=== PATIENT | male | born 1995 | race African-American/Black ===

== ENCOUNTER 2022-05-26 23:15 | Inpatient (IN) ==
[2022-05-26 23:58] LABS: MEAN CORPUSCULAR HEMOGLOBIN 27.7 pg (27.0-34.0); MEAN CORPUSCULAR HGB CONC 34.8 g/dL (33.0-35.0); RED CELL DISTRIBUTION WIDTH 12.1 % (11.6-16.5)
[2022-05-27 00:01] LABS: BASOPHILS # (AUTO) 0.1 X10^3/uL (0.0-0.1); BASOPHILS % (AUTO) 1.3 % (0.2-1.0); EOSINOPHILS # (AUTO) 0.1 x10^3/uL (0.0-0.2); EOSINOPHILS % (AUTO) 1.1 % (0.9-2.9); HEMATOCRIT 36.8 % (42.0-54.0); HEMOGLOBIN 12.8 g/dL (13.5-18.0); LYMPHOCYTES # (AUTO) 1.5 X10^3/uL (1.3-2.9); LYMPHOCYTES % (AUTO) 17.7 % (21.0-51.0); MEAN CORPUSCULAR VOLUME 79.8 fL (80.0-100.0); MEAN PLATELET VOLUME 7.7 fL (7.4-11.0); MONOCYTES # (AUTO) 0.5 x10^3/uL (0.3-0.8); NEUTROPHILS # (AUTO) 6.5 x10^3/uL (2.2-4.8); NEUTROPHILS % (AUTO) 73.9 % (42.0-75.0); RED BLOOD COUNT 4.61 X10^6/uL (4.7-6.0); WHITE BLOOD COUNT 8.7 X10^3/uL (3.6-10.0)
[2022-05-27 00:09] LABS: ALANINE AMINOTRANSFERASE 11 Units/L (12-78); ALBUMIN 2.8 g/dL (3.4-5.0); ALKALINE PHOSPHATASE 42 Units/L (46-116); ASPARTATE AMINO TRANSFERASE 28 Units/L (15-37); BLOOD UREA NITROGEN 15 mg/dL (7-18); CARBON DIOXIDE 29.9 mmol/L (21-32); CHLORIDE 97 mmol/L (98-107); CREATINE KINASE 137 Units/L (39-308); CREATININE 1.09 mg/dL (0.70-1.30); SODIUM 134 mmol/L (136-145); TOTAL PROTEIN 7.7 g/dL (6.4-8.2); eGFR NON BLACK RACES > 60 (>60)
[2022-05-27 00:23] LABS: BILIRUBIN,URINE NEGATIVE (NEGATIVE); BLOOD/HEMOGLOBIN,URINE 3+ (NEGATIVE); GLUCOSE, URINE NEGATIVE (NEGATIVE); KETONES,URINE 1+ (NEGATIVE); LEUKOCYTE ESTERASE ,URINE NEGATIVE (NEGATIVE); NITRITES,URINE NEGATIVE (NEGATIVE); PROTEIN,URINE 1+ (NEGATIVE); UROBILINOGEN,URINE NORMAL (NORMAL)
[2022-05-27 00:38] LABS: APPEARANCE,URINE CLEAR (CLEAR); BACTERIA,URINE NEGATIVE /HPF (NEGATIVE); COLOR,URINE YELLOW (YELLOW); SQUAMOUS EPITHELIAL CELL,UR FEW /HPF (NEGATIVE)
--- NOTE | 2022-05-27 01:02 | DR.SOBA ---
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 Patient admits totaking Delta 8 gummies ( 1 every 3 weeks). Chief Complaint:: Patient ambulatory in the ER with complaints of fatigue, intermittent cough that causes chest pain, shortness of breath, and he feels like his heart is fluttering x2 days. Paitents heart rate was 248 while sitting in triage. O2 is 91% on room air COVID-19 Coronavirus risk:travel/contact w/high risk person: No Has patient experienced Coronavirus symptoms: Yes Coronavirus symptoms experienced: Coughing and Shortness of Breath Source History Provided: Patient Mode of Arrival Mode of Arrival: Ambulatory Timing Onset of Chief Complaint: 05/24/22 PMH PMH Past Medical History: No Past Surgical History: No Family History History of Family Medical Conditions: Yes Family Medical History: Cancer Social History Does patient currently use any type of tobacco product: No Have you used tobacco products in the last 12 months: No Type of Tobacco Use: None Does any household member use tobacco: No Alcohol Use: None Do you use any recreational Drugs:: No Lives With: Alone Lives Where: Home Travel Risk Coronavirus risk:travel/contact w/high risk person: No Has patient experienced Coronavirus symptoms: Yes Coronavirus symptoms experienced: Coughing and Shortness of Breath Infectious screening Have you traveled outside the country in the last 6 months?: No Isolation: Standard ROS Review of Systems Constitutional: No Symptoms Reported Eyes: No Symptoms Reported ENTM: No Symptoms Reported Respiratoy: Dry Cough and Short of Breath; negative Hemoptysis Cardiovascular: Palpitations; negative Syncope Gastrointestinal/Abdominal: No Symptoms Reported Genitourinary: No Symptoms Reported Neurological: No Symptoms Reported Musculoskeletal: No Symptoms Reported; negative Back Pain Integumentary: No Symptoms Reported Hematologic/Lymphatic: No Symptoms Reported Endocrine: No Symptoms Reported Psychiatric: No Symptoms Reported All Other Systems: Reviewed and Negative PE Vital Signs Vitals: Temperature 100.1 F Pulse Rate 90 Respiratory Rate 28 Blood Pressure 124/79 O2 Sat by Pulse Oximetry 93 General Limitations: No Limitations General Appearance: Alert and In No Apparent Distress Head Head Exam: Normal Inspection Eyes Eye exam: Normal Appearance ENT ENT Exam: Normal Exam Neck Neck Exam: Normal Inspection Chest Chest Inspection: Normal Inspection Respiratory Respiratory Exam: Normal Lung Sounds Bilat Respiratory Exam: Bilateral: Decreased Breath Sounds Cardiovascular Cardiovascular Exam: Normal Rhythm and Tachycardia Abdominal Exam Abdominal Exam: Normal Inspection, Normal Bowel Sounds and Soft Extremities Extremities Exam: Normal Inspection Back Back Exam: Normal Inspection Neurologic Neurological Exam: Alert and Oriented X3 Psychiatric Psychiatric Exam: Normal Affect and Normal Mood Skin Skin Exam: Warm, Dry, Intact and Normal Color MDM Differential Diagnosis Differential Diagnosis: Asthma, CHF, Pneumonia, Pneumothorax and Pulmonary embolism COURSE Treatment Treatment: Patient's CXR reda by radiologist as bilateral pneumonia consider Covid-19 Pneumonia. Patient 's D-dimer was elevated and the Chest CTA read as severe bilateral pneumonia ( ARDS and alveolitis in the differentuial). Patient had an initial 02 sat of 88-91 %.He was placed on 2L 02 nc with 02 sat 95-96%. Patient'sABG on RA is PH 7.52/PC02 31/P02 54/02sat 91% (RA). Blood cx x 2 were drawn and patient is receiving Vancomycin 1500mg iv/Azithromycin 500mg iv/Zosyn 3.375 mg iv.Patient's Covid-19/Influenza A/B/Rsv are negative. Patient will be admitted to [facility] for further inpatient evaluation.He also recieved NS 1liter for his tachycardia current HR is 87. Patient has been admitted to Dr Alvarez's service for further evaluation. ROR Labs Reviewed Laboratory Results Reviewed?: Yes Result Diagrams: 05/26/22 23:41 05/26/22 23:41 Laboratory: WBC 8.7 X10^3/uL (3.6-10.0) 05/26/22 23:41 RBC 4.61 X10^6/uL (4.7-6.0) L 05/26/22 23:41 Hgb 12.8 g/dL (13.5-18.0) L 05/26/22 23:41 Hct 36.8 % (42.0-54.0) L 05/26/22 23:41 MCV 79.8 fL (80.0-100.0) L 05/26/22 23:41 MCH 27.7 pg (27.0-34.0) 05/26/22 23:41 MCHC 34.8 g/dL (33.0-35.0) 05/26/22 23: RDW 12.1 % (11.6-16.5) 05/26/22 23:41 Plt Count 344 X10^3/uL (150.0-450.0) 05/26/22 23:41 MPV 7.7 fL (7.4-11.0) 05/26/22 23:41 Neut % (Auto) 73.9 % (42.0-75.0) 05/26/22 23:41 Lymph % (Auto) 17.7 % (21.0-51.0) L 05/26/22 23:41 [place] % (Auto) 6.0 % (0.0-13.0) 05/26/22 23:41 Eos % (Auto) 1.1 % (0.9-2.9) 05/26/22 23:41 Baso % (Auto) 1.3 % (0.2-1.0) H 05/26/22 23:41 Neut # (Auto) 6.5 x10^3/uL (2.2-4.8) H 05/26/22 23:41 Lymph # (Auto) 1.5 X10^3/uL (1.3-2.9) 05/26/22 23:41 [place] # (Auto) 0.5 x10^3/uL (0.3-0.8) 05/26/22 23:41 Eos # (Auto) 0.1 x10^3/uL (0.0-0.2) 05/26/22 23:41 Baso # (Auto) 0.1 X10^3/uL (0.0-0.1) 05/26/22 23:41 Absolute Nucleated RBC 0.0 /100WBC 05/26/22 23:41 D-Dimer 0.58 ug/ml (0.0-0.57) H 05/26/22 23:41 Sample Site Rbra 05/27/22 02:25 ABG pH 7.520 (7.35-7.45) H 05/27/22 02:25 ABG pCO2 31.0 mmHg (35.0-45.0) L 05/27/22 02:25 ABG pO2 54.0 mmHg (80.0-100.0) L 05/27/22 02:25 ABG HCO3 25.3 mmol/L (22-26) 05/27/22 02:25 ABG O2 Saturation 91.0 % (90-100) 05/27/22 02:25 ABG Base Excess 2.9 mmol/L (-2.0-2.0) H 05/27/22 02:25 Lan Test Na 05/27/22 02:25 A-a Gradient 57.0 mmHg 05/27/22 02:25 FiO2 21.0 05/27/22 02:25 Blood Gas Comments [place] abg well-mtf 05/27/22 02:25 Sodium 134 mmol/L (136-145) L 05/26/22 23:41 Corrected Sodium TNP 05/26/22 23:41 Potassium 3.6 mmol/L (3.5-5.1) 05/26/22 23:41 Chloride 97 mmol/L (98-107) L 05/26/22 23:41 Carbon Dioxide 29.9 mmol/L (21-32) 05/26/22 23:41 BUN 15 mg/dL (7-18) 05/26/22 23:41 Creatinine 1.09 mg/dL (0.70-1.30) 05/26/22 23:41 Est GFR (MDRD) Af Amer > 60 (>60) 05/26/22 23:41 Est GFR (MDRD) Non-Af > 60 (>60) 05/26/22 23:41 Glucose 99 mg/dL (65-99) 05/26/22 23:41 Calcium 8.0 mg/dL (8.5-10.1) L 05/26/22 23:41 Corrected Calcium 9.0 mg/dL (8.5-10.1) 05/26/22 23:41 Magnesium 2.0 mg/dL (2.0-2.9) 05/26/22 23:41 Total Bilirubin 0.30 mg/dL (0.2-1.0) 05/26/22 23:41 AST 28 Units/L (15-37) 05/26/22 23:41 ALT 11 Units/L (12-78) L 05/26/22 23:41 Alkaline Phosphatase 42 Units/L (46-116) L 05/26/22 23:41 Creatine Kinase 137 Units/L (39-308) 05/26/22 23:41 Troponin I High Sens < 4.0 ng/L (4.0-60.0) L 05/26/22 23:41 Total Protein 7.7 g/dL (6.4-8.2) 05/26/22 23:41 Albumin 2.8 g/dL (3.4-5.0) L 05/26/22 23:41 Globulin 4.9 g/dL (2.5-4.5) H 05/26/22 23:41 Albumin/Globulin Ratio 0.6 Ratio (1.1-2.1) L 05/26/22 23:41 Specimen Type Clean catch urine 05/27/22 00:15 Urine Color Yellow (YELLOW) 05/27/22 00:15 Urine Appearance Clear (CLEAR) 05/27/22 00:15 Urine pH 5.0 (5.0 - 8.0) 05/27/22 00:15 Ur Specific [place] 1.020 (1.000-1.030) 05/27/22 00:15 Urine Protein 1+ (NEGATIVE) 05/27/22 00:15 Urine Glucose (UA) Negative (NEGATIVE) 05/27/22 00:15 Urine Ketones 1+ (NEGATIVE) 05/27/22 00:15 Urine Blood 3+ (NEGATIVE) 05/27/22 00:15 Urine Nitrite Negative (NEGATIVE) 05/27/22 00:15 Urine Bilirubin Negative (NEGATIVE) 05/27/22 00:15 Urine Urobilinogen Normal (NORMAL) 05/27/22 00:15 Ur Leukocyte Esterase Negative (NEGATIVE) 05/27/22 00:15 Urine RBC 3-5 /HPF (0-3) A 05/27/22 00:15 Urine WBC 0-2 /HPF (0-5) 05/27/22 00:15 Ur Squamous Epith Cells Few /HPF (NEGATIVE) 05/27/22 00:15 Urine Bacteria Negative /HPF (NEGATIVE) 05/27/22 00:15 Ur Culture Indicated? No/not indicated 05/27/22 00:15 Urine Opiates Screen Negative (NEG=<300) 05/27/22 00:15 Urine Methadone Screen Negative (NEG=<300) 05/27/22 00:15 Ur Barbiturates Screen Negative (NEG=<200) 05/27/22 00:15 Ur Phencyclidine Scrn Negative (NEG=<25) 05/27/22 00:15 Ur Amphetamines Screen Negative (NEG=<1000) 05/27/22 00:15 U Benzodiazepines Scrn Negative (NEG=<200) 05/27/22 00:15 Urine Cocaine Screen Negative (NEG=<300) 05/27/22 00:15 U Marijuana (THC) Screen Negative (NEG=<50) 05/27/22 00:15 SARS-CoV-2 (PCR) Negative (NEGATIVE) 05/26/22 23:50 Influenza Type A (PCR) Negative (NEGATIVE) 05/26/22 23:50 Influenza Type B (PCR) Negative (NEGATIVE) 05/26/22 23:50 RSV (PCR) Negative (NEGATIVE) 05/26/22 23:50 XRAY XRAY Interpreted by: Radiologist X-ray Results: HISTORY COUGH, SOB, ELEVATED D DIMER STUDY CTA CHEST COMPARISON None TECHNIQUE Multiple axial images of the chest were obtained from the thoracic inlet to the upper abdomen after the administration of IV contrast. 3D reconstructions utilizing axial MIPS imaging was performed and reviewed. Dose reduction techniques including Automated Exposure Control (AEC) and adjustment of mA and kV were utilized. FINDINGS Satisfactory bolus timing. Limited due to excessive respiratory motion. Negative for pulmonary embolus. The thoracic aorta tapers normally. No pericardial effusion. Limited evaluation of the upper abdomen demonstrates no acute process. Lung windows demonstrate severe bilateral ground-glass airspace opacities consistent with pneumonia. No pneumothorax. IMPRESSION Negative for pulmonary embolus. Severe bilateral pneumonia. ARDS or alveolitis would be differential considerations. Consider possible atypical and viral infectious processes. Covid-19 pneumonia could have a similar appearance. Electronically signed by: Dex Ritchie (May 27, 2022 02:00:50) HISTORY Patient ambulatory in the ER with complaints of fatigue, intermittent cough that causes chest pain, shortness of breath, and he feels like his heart is fluttering x2 days. FEVER NO MEDICAL HX STUDY CHEST, 1 VIEW COMPARISON None FINDINGS Severe bilateral airspace infiltrates worrisome for pneumonia. Midline trachea. Normal heart size. IMPRESSION Bilateral pneumonia. Consider Covid-19 pneumonia. Electronically signed by: Dex Ritchie (May 27, 2022 01:16:23) EKG Compared to prior EKG Dated: 05/26/22 Rate: 115 Rhythm: ST Opioid Opioid Risk Tool Age (Luis Alberto box if 16-45): No History of Preadolescent Sexual Abuse: No Total: 0 Total Score Risk Category: Low Risk Copyright: [facility] predicting aberrant behaviors Discharge Plan Diagnosis Discharge Problem: Community acquired pneumonia, bilateral Discharge Plan Patient Disposition: ADMITTED INPATIENT Condition: Stable Prescriptions: No Action Flintstones Gummies Tablet,Chewable 2 tab PO DAILY Health Concerns: Post Hospitalization: new medications and changes needed to prevent readmission or further decline. Pt educated and given instructions on all concerns. Plan of Treatment: Continue with present treatment and follow up plan. Pt is to keep follow up appointment as instructed and take medications as ordered. Orders to Discharge Patient Discharge Orders: Transfer (Routine); Ordered 05/27/22 Ordered By: Vy Campuzano Follow ups/Referrals Follow ups/Referrals: NFD,None [Primary Care Provider] - 3 days
[2022-05-27] MEDS ORDERED: NS 1,000 ML IV 1,000 ML IV ONE (01:13)
[2022-05-27] MEDS ORDERED: NS 1,000 ML IV 1,000 ML ONE (01:15)
--- NOTE | 2022-05-27 01:21 | RAD ---
HISTORYPatient ambulatory in the ER with complaints of fatigue, intermittent cough that causes chest pain, shortness of breath, and he feels like his heart is fluttering x2 days. FEVER NO MEDICAL HXSTUDYCHEST, 1 VIEWCOMPARISONNoneFINDINGSSevere bilateral airspace infiltrates worrisome for pneumonia. Midline trachea. Normal heart size.IMPRESSIONBilateral pneumonia. Consider Covid-19 pneumonia.Electronically signed by: Dex Ritchie (May 27, 2022 01:16:23)
--- NOTE | 2022-05-27 02:02 | CT ---
HISTORYCOUGH, SOB, ELEVATED D DIMERSTUDYCTA CHESTCOMPARISONNoneTECHNIQUEMultiple axial images of the chest were obtained from the thoracic inlet to the upper abdomen after the administration of IV contrast. 3D reconstructions utilizing axial MIPS imaging was performed and reviewed. Dose reduction techniques including Automated Exposure Control (AEC) and adjustment of mA and kV were utilized.FINDINGSSatisfactory bolus timing. Limited due to excessive respiratory motion.Negative for pulmonary embolus. The thoracic aorta tapers normally. No pericardial effusion. Limited evaluation of the upper abdomen demonstrates no acute process.Lung windows demonstrate severe bilateral ground-glass airspace opacities consistent with pneumonia. No pneumothorax.IMPRESSIONNegative for pulmonary embolus.Severe bilateral pneumonia. ARDS or alveolitis would be differential considerations. Consider possible atypical and viral infectious processes. Covid-19 pneumonia could have a similar appearance.Electronically signed by: Dex Ritchie (May 27, 2022 02:00:50)
[2022-05-27] MEDS ORDERED: VANCOMYCIN IV *PREMIX 1.5 G/300 ML BAG 1.5 G/300 ML PIGGYBACK IV ONE ×2 (02:17→02:40)
[2022-05-27] MEDS ORDERED: ZITHROMAX INJ 500 MG VIAL 500 MG in NS 250 ML IV 250 ML IV SCH (02:18)
[2022-05-27 02:29] LABS: ABG BASE EXCESS 2.9 mmol/L (-2.0-2.0); ABG HCO3 25.3 mmol/L (22-26)
[2022-05-27] MEDS ORDERED: ZITHROMAX INJ 500 MG VIAL IV ONE (02:39)
[2022-05-27] MEDS ORDERED: NS 100 ML IV 100 ML ONE (02:39)
[2022-05-27] MEDS ORDERED: ZOSYN VIAL 3.375 GRAMS IV ONE (02:39)
[2022-05-27] MEDS ORDERED: NS 250 ML IV 250 ML IV ONE (02:40)
[2022-05-27] MEDS: ZOSYN VIAL 3.375 GRAMS 3.375 G in NS 100 ML IV 100 ML IV SCH ×4 (03:00→21:23)
[2022-05-27 03:57] VITALS: BMI 19.8
[2022-05-27] MEDS ORDERED: SALINE 3% 15 ML NEB TX ONE ×2 (04:02→20:01)
[2022-05-27] MEDS ORDERED: TYLENOL 325 MG TAB PO ONE (04:24)
--- NOTE | 2022-05-27 04:26 | EKG ---
Test Reason : sob,tachycardia Blood Pressure : */* mmHG Vent. Rate : 84 BPM Atrial Rate : 84 BPM P-R Int : 180 ms QRS Dur : 82 ms QT Int : 376 ms P-R-T Axes : 72 79 55 degrees QTc Int : 444 ms Normal sinus rhythm Normal ECG When compared with ECG of 26-MAY-2022 23:40, (Unconfirmed) No significant change was found Confirmed by Beau Jamison ([id number]) on 05/27/2022 7:30:15 PM Referred By: Confirmed By: Beau Jamison
[2022-05-27 05:19] LABS: BASOPHILS % (AUTO) 0.5 % (0.2-1.0); EOSINOPHILS # (AUTO) 0.1 x10^3/uL (0.0-0.2); HEMATOCRIT 32.7 % (42.0-54.0); HEMOGLOBIN 11.4 g/dL (13.5-18.0); LYMPHOCYTES # (AUTO) 1.1 X10^3/uL (1.3-2.9); LYMPHOCYTES % (AUTO) 15.1 % (21.0-51.0); MEAN CORPUSCULAR HEMOGLOBIN 27.7 pg (27.0-34.0); MEAN CORPUSCULAR HGB CONC 34.8 g/dL (33.0-35.0); MEAN CORPUSCULAR VOLUME 79.5 fL (80.0-100.0); MEAN PLATELET VOLUME 7.9 fL (7.4-11.0); MONOCYTES # (AUTO) 0.5 x10^3/uL (0.3-0.8); MONOCYTES % (AUTO) 7.2 % (0.0-13.0); NEUTROPHILS # (AUTO) 5.6 x10^3/uL (2.2-4.8); NEUTROPHILS % (AUTO) 76.2 % (42.0-75.0); RED BLOOD COUNT 4.12 X10^6/uL (4.7-6.0); WHITE BLOOD COUNT 7.4 X10^3/uL (3.6-10.0)
[2022-05-27] MEDS: NS 1,000 ML IV 1,000 ML IV SCH ×2 (05:35→16:44)
[2022-05-27 05:37] LABS: ALANINE AMINOTRANSFERASE 9 Units/L (12-78); ALBUMIN 2.4 g/dL (3.4-5.0); ALKALINE PHOSPHATASE 38 Units/L (46-116); ASPARTATE AMINO TRANSFERASE 24 Units/L (15-37); BLOOD UREA NITROGEN 12 mg/dL (7-18); CALCIUM 7.7 mg/dL (8.5-10.1); CARBON DIOXIDE 28.4 mmol/L (21-32); CHLORIDE 98 mmol/L (98-107); CREATININE 1.06 mg/dL (0.70-1.30); SODIUM 134 mmol/L (136-145); TOTAL PROTEIN 6.8 g/dL (6.4-8.2); eGFR NON BLACK RACES > 60 (>60)
[2022-05-27] MEDS: TYLENOL 325 MG TAB PO PRN ×2 (05:37→21:23)
[2022-05-27] MEDS ORDERED: POTASSIUM CHL 40 MEQ/NS 0.45% 500 ML IV PRN (07:13)
[2022-05-27] MEDS ORDERED: K-DUR TAB 20 MEQ PO PRN (07:13)
[2022-05-27] MEDS ORDERED: POTASSIUM CHL 60 MEQ/NS 0.45% 500 ML IV PRN (07:13)
[2022-05-27] MEDS ORDERED: KLOR-CON PO PRN (07:13)
[2022-05-27] MEDS ORDERED: K-RIDER 10 MEQ/NS 100 ML 10 MEQ/100 ML BAG IV PRN (07:13)
[2022-05-27] MEDS ORDERED: MICRO K EXTEN CAP 10 MEQ PO PRN (07:13)
[2022-05-27] MEDS ORDERED: POTASSIUM CHLORIDE LIQ 20 MEQ UDC PO PRN (07:13)
[2022-05-27] MEDS: DUONEB 0.5 MG/3 MG (3 mL) NEB SCH ×5 (08:30→20:47)
[2022-05-27] MEDS: PULMICORT NEB TX 0.5 MG NEB SCH ×2 (08:30→20:47)
[2022-05-27] MEDS ORDERED: MULTIVITAMIN PO SCH (09:00)
[2022-05-27] MEDS ORDERED: [UNRECOGNIZED DRUG - OTHER] PO SCH (09:00)
--- NOTE | 2022-05-27 17:51 | DR.H&P ---
H&P History & Physical for Day of: H&P Date: 05/27/22 Chief Complaint Chief Complaint: Cough with intermittent chest pain shortness of breath and heart fluttering Allergies Allergies Allergy/AdvReac Type Severity Reaction Status Date / Time No Known Allergies Allergy Verified 05/26/22 23:47 History of Present Illness History of Present Illness: This is a pleasant 26-year-old black male who presented to the emergency department last night with increasing coughing for the last 2 days associated with pleuritic chest pain with cough, heart fluttering and generally not feeling well. His chest x-ray showed what looked like to be atypical viral pneumonia much like he see with COVID-19 infection however his COVID-19 test is negative at this time. 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 Currently he works in sanitation at a local company and they do clean floors but only use mild chemicals at this time that does not appear to be too strong. His D-dimer was a lso slightly elevated and they did a CT scan that ruled out a PE. The CT scan did show severe groundglass opacities throughout both lungs however I do not know if this is a chronic or acute condition for him. They were not able to get a sputum last night however they did a viral respiratory panel. In the meantime we have started him on IV azithromycin and Zosyn. Blood cultures x2 have been drawn and are pending. Patient was noted to have some low fever in the emergency department last night. When he came in his heart rate was around 248 in triage but that has normalized with the IV fluid he has received and jet nebs. Patient reports he is previously healthy and not on any medications. Family History Family Medical History: Cancer Social History Does patient currently use any type of tobacco product: No (non smoker) Have you used tobacco products in the last 12 months: No Type of Tobacco Use: None Does any household member use tobacco: No Alcohol Use: None Drug Use: Marijuana Medications Home Medications: No Known Allergies Allergy (Verified 05/26/22 23:47) CONTINUE taking the following medications pediatric multivitamin no.49 (Flintstones Gummies chewable tablet) 2 tab PO DAILY 05/26/22 [History] Labs Result Diagrams: 05/27/22 04:14 05/27/22 04:14 Labs: Laboratory WBC 7.4 X10^3/uL (3.6-10.0) 05/27/22 04:14 RBC 4.12 X10^6/uL (4.7-6.0) L 05/27/22 04:14 Hgb 11.4 g/dL (13.5-18.0) L 05/27/22 04:14 Hct 32.7 % (42.0-54.0) L 05/27/22 04:14 MCV 79.5 fL (80.0-100.0) L 05/27/22 04:14 MCH 27.7 pg (27.0-34.0) 05/27/22 04:14 MCHC 34.8 g/dL (33.0-35.0) 05/27/22 04:14 RDW 12.0 % (11.6-16.5) 05/27/22 04:14 Plt Count 317 X10^3/uL (150.0-450.0) 05/27/22 04:14 MPV 7.9 fL (7.4-11.0) 05/27/22 04:14 Neut % (Auto) 76.2 % (42.0-75.0) H 05/27/22 04:14 Lymph % (Auto) 15.1 % (21.0-51.0) L 05/27/22 04:14 [place] % (Auto) 7.2 % (0.0-13.0) 05/27/22 04:14 Eos % (Auto) 1.0 % (0.9-2.9) 05/27/22 04:14 Baso % (Auto) 0.5 % (0.2-1.0) 05/27/22 04:14 Neut # (Auto) 5.6 x10^3/uL (2.2-4.8) H 05/27/22 04:14 Lymph # (Auto) 1.1 X10^3/uL (1.3-2.9) L 05/27/22 04:14 [place] # (Auto) 0.5 x10^3/uL (0.3-0.8) 05/27/22 04:14 Eos # (Auto) 0.1 x10^3/uL (0.0-0.2) 05/27/22 04:14 Baso # (Auto) 0.0 X10^3/uL (0.0-0.1) 05/27/22 04:14 Absolute Nucleated RBC 0.0 /100WBC 05/27/22 04:14 D-Dimer 0.58 ug/ml (0.0-0.57) H 05/26/22 23:41 Sample Site Rbra 05/27/22 02:25 ABG pH 7.520 (7.35-7.45) H 05/27/22 02:25 ABG pCO2 31.0 mmHg (35.0-45.0) L 05/27/22 02:25 ABG pO2 54.0 mmHg (80.0-100.0) L 05/27/22 02:25 ABG HCO3 25.3 mmol/L (22-26) 05/27/22 02:25 ABG O2 Saturation 91.0 % (90-100) 05/27/22 02:25 ABG Base Excess 2.9 mmol/L (-2.0-2.0) H 05/27/22 02:25 Lan Test Na 05/27/22 02:25 A-a Gradient 57.0 mmHg 05/27/22 02:25 FiO2 21.0 05/27/22 02:25 Blood Gas Comments [place] abg well-mtf 05/27/22 02:25 Sodium 134 mmol/L (136-145) L 05/27/22 04:14 Corrected Sodium TNP 05/27/22 04:14 Potassium 3.5 mmol/L (3.5-5.1) 05/27/22 04:14 Chloride 98 mmol/L (98-107) 05/27/22 04:14 Carbon Dioxide 28.4 mmol/L (21-32) 05/27/22 04:14 BUN 12 mg/dL (7-18) 05/27/22 04:14 Creatinine 1.06 mg/dL (0.70-1.30) 05/27/22 04:14 Est GFR (MDRD) Af Amer > 60 (>60) 05/27/22 04:14 Est GFR (MDRD) Non-Af > 60 (>60) 05/27/22 04:14 Glucose 81 mg/dL (65-99) 05/27/22 04:14 Calcium 7.7 mg/dL (8.5-10.1) L 05/27/22 04:14 Corrected Calcium 9.0 mg/dL (8.5-10.1) 05/27/22 04:14 Magnesium 2.0 mg/dL (2.0-2.9) 05/26/22 23:41 Total Bilirubin 0.40 mg/dL (0.2-1.0) 05/27/22 04:14 AST 24 Units/L (15-37) 05/27/22 04:14 ALT 9 Units/L (12-78) L 05/27/22 04:14 Alkaline Phosphatase 38 Units/L (46-116) L 05/27/22 04:14 Creatine Kinase 137 Units/L (39-308) 05/26/22 23:41 Troponin I High Sens < 4.0 ng/L (4.0-60.0) L 05/26/22 23:41 Total Protein 6.8 g/dL (6.4-8.2) 05/27/22 04:14 Albumin 2.4 g/dL (3.4-5.0) L 05/27/22 04:14 Globulin 4.4 g/dL (2.5-4.5) 05/27/22 04:14 Albumin/Globulin Ratio 0.5 Ratio (1.1-2.1) L 05/27/22 04:14 Specimen Type Clean catch urine 05/27/22 00:15 Urine Color Yellow (YELLOW) 05/27/22 00:15 Urine Appearance Clear (CLEAR) 05/27/22 00:15 Urine pH 5.0 (5.0 - 8.0) 05/27/22 00:15 Ur Specific [place] 1.020 (1.000-1.030) 05/27/22 00:15 Urine Protein 1+ (NEGATIVE) 05/27/22 00:15 Urine Glucose (UA) Negative (NEGATIVE) 05/27/22 00:15 Urine Ketones 1+ (NEGATIVE) 05/27/22 00:15 Urine Blood 3+ (NEGATIVE) 05/27/22 00:15 Urine Nitrite Negative (NEGATIVE) 05/27/22 00:15 Urine Bilirubin Negative (NEGATIVE) 05/27/22 00:15 Urine Urobilinogen Normal (NORMAL) 05/27/22 00:15 Ur Leukocyte Esterase Negative (NEGATIVE) 05/27/22 00:15 Urine RBC 3-5 /HPF (0-3) A 05/27/22 00:15 Urine WBC 0-2 /HPF (0-5) 05/27/22 00:15 Ur Squamous Epith Cells Few /HPF (NEGATIVE) 05/27/22 00:15 Urine Bacteria Negative /HPF (NEGATIVE) 05/27/22 00:15 Ur Culture Indicated? No/not indicated 05/27/22 00:15 Urine Opiates Screen Negative (NEG=<300) 05/27/22 00:15 Urine Methadone Screen Negative (NEG=<300) 05/27/22 00:15 Ur Barbiturates Screen Negative (NEG=<200) 05/27/22 00:15 Ur Phencyclidine Scrn Negative (NEG=<25) 05/27/22 00:15 Ur Amphetamines Screen Negative (NEG=<1000) 05/27/22 00:15 U Benzodiazepines Scrn Negative (NEG=<200) 05/27/22 00:15 Urine Cocaine Screen Negative (NEG=<300) 05/27/22 00:15 U Marijuana (THC) Screen Negative (NEG=<50) 05/27/22 00:15 SARS-CoV-2 (PCR) Negative (NEGATIVE) 05/26/22 23:50 Influenza Type A (PCR) Negative (NEGATIVE) 05/26/22 23:50 Influenza Type B (PCR) Negative (NEGATIVE) 05/26/22 23:50 RSV (PCR) Negative (NEGATIVE) 05/26/22 23:50 Review of Systems Constitutional: Fever and Weakness Eyes: No Symptoms Reported ENT: No Symptoms Reported Respiratory: Cough, Shortness of Breath and Pleuritic Pain Cardiovascular: Chest Pain and Palpitations Gastrointestinal: No Symptoms Reported Genitourinary: No Symptoms Reported Musculoskeletal: No Symptoms Reported Skin: No Symptoms Reported Neurological: No Symptoms Reported Physical Exam Vital Signs: Temperature 97.8 F Pulse Rate 88 Respiratory Rate 23 Blood Pressure [Left Arm] 110/73 Blood Pressure 117/76 O2 Sat by Pulse Oximetry 95 Oriented: Normal, Time, Person and Place Eyes: Normal Nose: Normal Respiratory: Clear Throughout Cardiovascular: Normal Auscultation: Bowel Sounds: Normal Palpation: Normal Tenderness: Normal Skin: Normal Musculoskeletal: Normal Psychiatric: Normal Mood Description: Calm Affect: Normal Speech Pattern: Clear and Appropriate Assessment/Plan (1) Community acquired pneumonia, bilateral: Status: Acute (2) Atypical pneumonia: Status: Acute Plan: Check mycoplasma antibodies to see if patient has underlying mycoplasma pneumonia. Follow-up with respiratory viral cultures when available. We will try to do a sputum culture as well. Continue IV azithromycin and Zosyn at this time. We will also be giving him DuoNebs along with budesonide nebs twice daily.
[2022-05-27 18:59] LABS: MYCOPLASMA PNEUMONIAE IGM AB NEGATIVE (NEGATIVE)
[2022-05-28] MEDS: TYLENOL 325 MG TAB PO PRN ×2 (04:40→13:25)
[2022-05-28] MEDS ORDERED: ROBITUSSIN DM PO PRN (04:53)
[2022-05-28 05:12] LABS: BASOPHILS # (AUTO) 0.1 X10^3/uL (0.0-0.1); BASOPHILS % (AUTO) 0.7 % (0.2-1.0); EOSINOPHILS # (AUTO) 0.2 x10^3/uL (0.0-0.2); EOSINOPHILS % (AUTO) 1.9 % (0.9-2.9); HEMATOCRIT 36.2 % (42.0-54.0); HEMOGLOBIN 12.7 g/dL (13.5-18.0); LYMPHOCYTES # (AUTO) 1.5 X10^3/uL (1.3-2.9); LYMPHOCYTES % (AUTO) 15.3 % (21.0-51.0); MEAN PLATELET VOLUME 7.5 fL (7.4-11.0); MONOCYTES # (AUTO) 0.6 x10^3/uL (0.3-0.8); MONOCYTES % (AUTO) 5.9 % (0.0-13.0); NEUTROPHILS # (AUTO) 7.6 x10^3/uL (2.2-4.8); NEUTROPHILS % (AUTO) 76.2 % (42.0-75.0); RED BLOOD COUNT 4.52 X10^6/uL (4.7-6.0); RED CELL DISTRIBUTION WIDTH 12.3 % (11.6-16.5); WHITE BLOOD COUNT 9.9 X10^3/uL (3.6-10.0)
[2022-05-28] MEDS: ZOSYN VIAL 3.375 GRAMS 3.375 G in NS 100 ML IV 100 ML IV SCH ×2 (05:16→13:24)
[2022-05-28] MEDS: NS 1,000 ML IV 1,000 ML IV SCH (05:16)
[2022-05-28 05:26] LABS: ALANINE AMINOTRANSFERASE 9 Units/L (12-78); ALBUMIN 2.5 g/dL (3.4-5.0); ALKALINE PHOSPHATASE 39 Units/L (46-116); ASPARTATE AMINO TRANSFERASE 28 Units/L (15-37); BLOOD UREA NITROGEN 6 mg/dL (7-18); CALCIUM 8.3 mg/dL (8.5-10.1); CARBON DIOXIDE 29.3 mmol/L (21-32); CHLORIDE 100 mmol/L (98-107); COR CA(FOR HYPOALB) 9.5 mg/dL (8.5-10.1); CREATININE 0.91 mg/dL (0.70-1.30); SODIUM 138 mmol/L (136-145); TOTAL PROTEIN 7.4 g/dL (6.4-8.2); eGFR NON BLACK RACES > 60 (>60)
[2022-05-28 05:55] LABS: ABG BASE EXCESS 4.7 mmol/L (-2.0-2.0); ABG HCO3 28.2 mmol/L (22-26)
[2022-05-28 05:56] LABS: ABG ALLEN TEST POS
--- NOTE | 2022-05-28 07:09 | RAD ---
HISTORYBIL PNEUMONIA, SOBSTUDYCHEST, 1 VIEWCOMPARISONCTA chest from 05/27/2022. Chest radiograph from 05/26/2022.TECHNIQUEPA or AP view of the chestFINDINGSCardiac and mediastinal contours are within normal limits. Worse appearance of bilateral airspace and interstitial opacities compared to prior radiograph. No definite pleural effusion or pneumothorax.IMPRESSIONWorse bilateral pneumonia compared to prior radiograph. Recommend follow up imaging to document resolution after appropriate treatment.Electronically signed by: Abhi Blanco (May 28, 2022 07:08:33)
[2022-05-28] MEDS: PULMICORT NEB TX 0.5 MG NEB SCH ×2 (08:23→20:03)
[2022-05-28] MEDS: DUONEB 0.5 MG/3 MG (3 mL) NEB SCH ×5 (08:23→20:03)
[2022-05-28] MEDS ORDERED: VIBRAMYCIN 100 MG in D5W 250 ML IV 250 ML IV SCH (09:00)
[2022-05-28] MEDS ORDERED: ZITHROMAX INJ 500 MG VIAL 500 MG in NS 250 ML IV 250 ML IV SCH (09:00)
--- NOTE | 2022-05-28 13:52 | PCM.PROG ---
Progress Note Progress Note for Day of Date of Exam: 05/28/22 Subjective Subjective: Patient is about the same this morning. He does report feeling a little bit better though. He had no problems overnight but I did see that he had some fever around 5:00 this morning of 101 F. He feels like the phlegm in his chest is starting to break loose as he is starting to cough, but this time. He has no new complaints this morning. Viral respiratory panel is still pending at this time. His labs look good overall today. Past Medical Family Social History Allergies: Allergies No Known Allergies Allergy (Verified 05/26/22 23:47) Review of Systems ROS: No change since H&P Vital Signs and I&O's Vital Signs: Temperature 102.3 F Pulse Rate 110 Respiratory Rate 22 Blood Pressure [Left Arm] 110/73 Blood Pressure 118/70 O2 Sat by Pulse Oximetry 94 Intake and Output: Intake & Output 05/26/22 05/27/22 05/28/22 05/29/22 11:59 11:59 11:59 11:59 Intake Total 308 / 308 2733 / 2733 Output Total 2750 / 2750 Balance 308 / 308 -17 / -17 Physical Exam Oriented: Normal, Time, Person and Place Eyes: Normal Nose: Normal Respiratory: Generalized and Rhonchi Cardiovascular: Normal Auscultation: Bowel Sounds: Normal Tenderness: Normal Skin: Normal Musculoskeletal: Normal Psychiatric: Normal Mood Description: Calm Affect: Normal Speech Pattern: Clear and Appropriate Laboratory and Diagnostics Result Diagrams: 05/28/22 04:40 05/28/22 04:40 Labs: Laboratory WBC 9.9 X10^3/uL (3.6-10.0) 05/28/22 04:40 RBC 4.52 X10^6/uL (4.7-6.0) L 05/28/22 04:40 Hgb 12.7 g/dL (13.5-18.0) L 05/28/22 04:40 Hct 36.2 % (42.0-54.0) L 05/28/22 04:40 MCV 80.0 fL (80.0-100.0) 05/28/22 04:40 MCH 28.0 pg (27.0-34.0) 05/28/22 04:40 MCHC 35.0 g/dL (33.0-35.0) 05/28/22 04:40 RDW 12.3 % (11.6-16.5) 05/28/22 04:40 Plt Count 312 X10^3/uL (150.0-450.0) 05/28/22 04:40 MPV 7.5 fL (7.4-11.0) 05/28/22 04:40 Neut % (Auto) 76.2 % (42.0-75.0) H 05/28/22 04:40 Lymph % (Auto) 15.3 % (21.0-51.0) L 05/28/22 04:40 [place] % (Auto) 5.9 % (0.0-13.0) 05/28/22 04:40 Eos % (Auto) 1.9 % (0.9-2.9) 05/28/22 04:40 Baso % (Auto) 0.7 % (0.2-1.0) 05/28/22 04:40 Neut # (Auto) 7.6 x10^3/uL (2.2-4.8) H 05/28/22 04:40 Lymph # (Auto) 1.5 X10^3/uL (1.3-2.9) 05/28/22 04:40 [place] # (Auto) 0.6 x10^3/uL (0.3-0.8) 05/28/22 04:40 Eos # (Auto) 0.2 x10^3/uL (0.0-0.2) 05/28/22 04:40 Baso # (Auto) 0.1 X10^3/uL (0.0-0.1) 05/28/22 04:40 Absolute Nucleated RBC 0.0 /100WBC 05/28/22 04:40 D-Dimer 0.58 ug/ml (0.0-0.57) H 05/26/22 23:41 Sample Site Rr 05/28/22 05:00 ABG pH 7.490 (7.35-7.45) H 05/28/22 05:00 ABG pCO2 37.0 mmHg (35.0-45.0) 05/28/22 05:00 ABG pO2 101.0 mmHg (80.0-100.0) H 05/28/22 05:00 ABG HCO3 28.2 mmol/L (22-26) H 05/28/22 05:00 ABG O2 Saturation 98.0 % (90-100) 05/28/22 05:00 ABG Base Excess 4.7 mmol/L (-2.0-2.0) H 05/28/22 05:00 Lan Test Pos 05/28/22 05:00 A-a Gradient 81.0 mmHg 05/28/22 05:00 FiO2 32.0 05/28/22 05:00 Blood Gas Comments [place] well sw 05/28/22 05:00 Sodium 138 mmol/L (136-145) 05/28/22 04:40 Corrected Sodium TNP 05/28/22 04:40 Potassium 3.5 mmol/L (3.5-5.1) 05/28/22 04:40 Chloride 100 mmol/L (98-107) 05/28/22 04:40 Carbon Dioxide 29.3 mmol/L (21-32) 05/28/22 04:40 BUN 6 mg/dL (7-18) L 05/28/22 04:40 Creatinine 0.91 mg/dL (0.70-1.30) 05/28/22 04:40 Est GFR (MDRD) Af Amer > 60 (>60) 05/28/22 04:40 Est GFR (MDRD) Non-Af > 60 (>60) 05/28/22 04:40 Glucose 79 mg/dL (65-99) 05/28/22 04:40 Calcium 8.3 mg/dL (8.5-10.1) L 05/28/22 04:40 Corrected Calcium 9.5 mg/dL (8.5-10.1) 05/28/22 04:40 Magnesium 2.0 mg/dL (2.0-2.9) 05/26/22 23:41 Total Bilirubin 0.40 mg/dL (0.2-1.0) 05/28/22 04:40 AST 28 Units/L (15-37) 05/28/22 04:40 ALT 9 Units/L (12-78) L 05/28/22 04:40 Alkaline Phosphatase 39 Units/L (46-116) L 05/28/22 04:40 Creatine Kinase 137 Units/L (39-308) 05/26/22 23:41 Troponin I High Sens < 4.0 ng/L (4.0-60.0) L 05/26/22 23:41 Total Protein 7.4 g/dL (6.4-8.2) 05/28/22 04:40 Albumin 2.5 g/dL (3.4-5.0) L 05/28/22 04:40 Globulin 4.9 g/dL (2.5-4.5) H 05/28/22 04:40 Albumin/Globulin Ratio 0.5 Ratio (1.1-2.1) L 05/28/22 04:40 Specimen Type Clean catch urine 05/27/22 00:15 Urine Color Yellow (YELLOW) 05/27/22 00:15 Urine Appearance Clear (CLEAR) 05/27/22 00:15 Urine pH 5.0 (5.0 - 8.0) 05/27/22 00:15 Ur Specific [place] 1.020 (1.000-1.030) 05/27/22 00:15 Urine Protein 1+ (NEGATIVE) 05/27/22 00:15 Urine Glucose (UA) Negative (NEGATIVE) 05/27/22 00:15 Urine Ketones 1+ (NEGATIVE) 05/27/22 00:15 Urine Blood 3+ (NEGATIVE) 05/27/22 00:15 Urine Nitrite Negative (NEGATIVE) 05/27/22 00:15 Urine Bilirubin Negative (NEGATIVE) 05/27/22 00:15 Urine Urobilinogen Normal (NORMAL) 05/27/22 00:15 Ur Leukocyte Esterase Negative (NEGATIVE) 05/27/22 00:15 Urine RBC 3-5 /HPF (0-3) A 05/27/22 00:15 Urine WBC 0-2 /HPF (0-5) 05/27/22 00:15 Ur Squamous Epith Cells Few /HPF (NEGATIVE) 05/27/22 00:15 Urine Bacteria Negative /HPF (NEGATIVE) 05/27/22 00:15 Ur Culture Indicated? No/not indicated 05/27/22 00:15 Urine Opiates Screen Negative (NEG=<300) 05/27/22 00:15 Urine Methadone Screen Negative (NEG=<300) 05/27/22 00:15 Ur Barbiturates Screen Negative (NEG=<200) 05/27/22 00:15 Ur Phencyclidine Scrn Negative (NEG=<25) 05/27/22 00:15 Ur Amphetamines Screen Negative (NEG=<1000) 05/27/22 00:15 U Benzodiazepines Scrn Negative (NEG=<200) 05/27/22 00:15 Urine Cocaine Screen Negative (NEG=<300) 05/27/22 00:15 U Marijuana (THC) Screen Negative (NEG=<50) 05/27/22 00:15 SARS-CoV-2 (PCR) Negative (NEGATIVE) 05/26/22 23:50 Influenza Type A (PCR) Negative (NEGATIVE) 05/26/22 23:50 Influenza Type B (PCR) Negative (NEGATIVE) 05/26/22 23:50 Mycoplasma pneumon IgG Negative (NEGATIVE) 05/27/22 18:03 RSV (PCR) Negative (NEGATIVE) 05/26/22 23:50 Resp Viral Panel (PCR) See scanned report 05/27/22 04:07 Radiology Reviewed: Yes Plan (1) Community acquired pneumonia, bilateral: Status: Acute Narrative Support Text: Chest x-ray showed some worsening since yesterday's chest x-ray was done. Likely was secondary to the IV fluid he received. Also the Mycoplasma pneumoniae a antibody test was negative. Plan: I am stopping the azithromycin this morning and starting him on IV Vibramycin. (2) Atypical pneumonia: Status: Acute Plan: Follow-up with respiratory viral cultures when available. We will try to do a sputum culture as well.
[2022-05-28] MEDS ORDERED: PULMICORT NEB TX 0.5 MG NEB ONE (19:09)
[2022-05-28] MEDS: LEVAQUIN PREMIX IV 750 MG 750 MG/150 ML BAG IV SCH (19:30)
[2022-05-29] MEDS: TYLENOL 325 MG TAB PO PRN ×2 (01:19→10:11)
[2022-05-29] MEDS: NS 1,000 ML IV 1,000 ML IV SCH ×3 (01:45→20:42)
[2022-05-29] MEDS: PULMICORT NEB TX 0.5 MG NEB SCH ×2 (08:27→21:11)
[2022-05-29] MEDS: DUONEB 0.5 MG/3 MG (3 mL) NEB SCH ×4 (08:28→21:14)
[2022-05-29] MEDS: LEVAQUIN PREMIX IV 750 MG 750 MG/150 ML BAG IV SCH (08:56)
[2022-05-29 10:09] LABS: BASOPHILS % (AUTO) 0.4 % (0.2-1.0); EOSINOPHILS # (AUTO) 0.2 x10^3/uL (0.0-0.2); EOSINOPHILS % (AUTO) 1.5 % (0.9-2.9); HEMATOCRIT 36.3 % (42.0-54.0); HEMOGLOBIN 12.4 g/dL (13.5-18.0); LYMPHOCYTES # (AUTO) 2.1 X10^3/uL (1.3-2.9); LYMPHOCYTES % (AUTO) 19.2 % (21.0-51.0); MEAN CORPUSCULAR HEMOGLOBIN 27.6 pg (27.0-34.0); MEAN CORPUSCULAR HGB CONC 34.1 g/dL (33.0-35.0); MEAN CORPUSCULAR VOLUME 80.8 fL (80.0-100.0); MEAN PLATELET VOLUME 7.1 fL (7.4-11.0); MONOCYTES # (AUTO) 0.6 x10^3/uL (0.3-0.8); MONOCYTES % (AUTO) 5.6 % (0.0-13.0); NEUTROPHILS # (AUTO) 8.1 x10^3/uL (2.2-4.8); NEUTROPHILS % (AUTO) 73.3 % (42.0-75.0); RED BLOOD COUNT 4.49 X10^6/uL (4.7-6.0); RED CELL DISTRIBUTION WIDTH 12.4 % (11.6-16.5); WHITE BLOOD COUNT 11.1 X10^3/uL (3.6-10.0)
[2022-05-29 10:34] LABS: ALANINE AMINOTRANSFERASE 9 Units/L (12-78); ALBUMIN 2.3 g/dL (3.4-5.0); ALKALINE PHOSPHATASE 38 Units/L (46-116); ASPARTATE AMINO TRANSFERASE 32 Units/L (15-37); BLOOD UREA NITROGEN 5 mg/dL (7-18); CALCIUM 8.2 mg/dL (8.5-10.1); CARBON DIOXIDE 28.1 mmol/L (21-32); CHLORIDE 101 mmol/L (98-107); COR CA(FOR HYPOALB) 9.6 mg/dL (8.5-10.1); CREATININE 1.01 mg/dL (0.70-1.30); SODIUM 139 mmol/L (136-145); TOTAL PROTEIN 7.3 g/dL (6.4-8.2); eGFR NON BLACK RACES > 60 (>60)
--- NOTE | 2022-05-29 11:03 | EKG ---
Test Reason : Chest pain, shortness of breath Blood Pressure : */* mmHG Vent. Rate : 122 BPM Atrial Rate : 122 BPM P-R Int : 166 ms QRS Dur : 80 ms QT Int : 282 ms P-R-T Axes : 66 68 43 degrees QTc Int : 401 ms Sinus tachycardia Possible Left atrial enlargement Nonspecific T wave abnormality Abnormal ECG When compared with ECG of 27-MAY-2022 04:18, Nonspecific T wave abnormality now evident in Lateral leads Confirmed by Beau Jamison ([id number]) on 05/31/2022 8:32:26 AM Referred By: Confirmed By: Beau Jamison
--- NOTE | 2022-05-29 11:15 | RAD ---
HISTORYPneumoniaSTUDYAP chestCOMPARISONApril 2022FINDINGSThere is interval progression of diffuse bilateral airspace involvement in the lungs especially on the right. Heart size remains normal with no evidence for developing pleural effusion.IMPRESSIONPersistent bilateral pneumonia with slight interval progression.Electronically signed by: JORDAN CHAMBERS (May 29, 2022 11:14:13)
[2022-05-29] MEDS: TORADOL 30 MG VIAL IVP PRN (11:36)
[2022-05-30] MEDS: TYLENOL 325 MG TAB PO PRN ×2 (00:13→17:02)
[2022-05-30 05:07] LABS: BASOPHILS # (AUTO) 0.1 X10^3/uL (0.0-0.1); BASOPHILS % (AUTO) 0.7 % (0.2-1.0); EOSINOPHILS # (AUTO) 0.3 x10^3/uL (0.0-0.2); HEMATOCRIT 32.3 % (42.0-54.0); HEMOGLOBIN 11.2 g/dL (13.5-18.0); LYMPHOCYTES # (AUTO) 0.8 X10^3/uL (1.3-2.9); MEAN CORPUSCULAR HEMOGLOBIN 27.5 pg (27.0-34.0); MEAN CORPUSCULAR HGB CONC 34.7 g/dL (33.0-35.0); MEAN CORPUSCULAR VOLUME 79.3 fL (80.0-100.0); MEAN PLATELET VOLUME 7.6 fL (7.4-11.0); MONOCYTES # (AUTO) 0.5 x10^3/uL (0.3-0.8); MONOCYTES % (AUTO) 6.5 % (0.0-13.0); NEUTROPHILS # (AUTO) 6.5 x10^3/uL (2.2-4.8); NEUTROPHILS % (AUTO) 78.8 % (42.0-75.0); RED BLOOD COUNT 4.08 X10^6/uL (4.7-6.0); RED CELL DISTRIBUTION WIDTH 12.5 % (11.6-16.5); WHITE BLOOD COUNT 8.3 X10^3/uL (3.6-10.0)
[2022-05-30 05:18] LABS: ALANINE AMINOTRANSFERASE 9 Units/L (12-78); ALKALINE PHOSPHATASE 35 Units/L (46-116); ASPARTATE AMINO TRANSFERASE 26 Units/L (15-37); BLOOD UREA NITROGEN 7 mg/dL (7-18); CHLORIDE 102 mmol/L (98-107); COR CA(FOR HYPOALB) 9.6 mg/dL (8.5-10.1); SODIUM 137 mmol/L (136-145); TOTAL PROTEIN 6.8 g/dL (6.4-8.2); eGFR NON BLACK RACES > 60 (>60)
[2022-05-30] MEDS: DUONEB 0.5 MG/3 MG (3 mL) NEB SCH ×4 (08:05→20:55)
[2022-05-30] MEDS: PULMICORT NEB TX 0.5 MG NEB SCH ×2 (08:05→20:55)
[2022-05-30] MEDS: NS 1,000 ML IV 1,000 ML IV SCH ×2 (09:11→23:19)
[2022-05-30] MEDS: LEVAQUIN PREMIX IV 750 MG 750 MG/150 ML BAG IV SCH (09:12)
--- NOTE | 2022-05-30 09:43 | RAD ---
HISTORYAtypical pneumonia COVID-19STUDYAP chestCOMPARISONApril 2022FINDINGSPersistent diffuse bilateral pulmonary infiltrates with no improvement or progression. Heart size remains normal.IMPRESSIONNo change since 1 day prior.Electronically signed by: JORDAN CHAMBERS (May 30, 2022 09:42:21)
--- NOTE | 2022-05-30 11:42 | PCM.PROG ---
Progress Note - Progress Note for Day of Date of Exam: 05/29/22 - Subjective Subjective: IS A 26 YEAR OLD PATIENT OF . HE IS CURRENTLY INPATIENT STATUS FOR TREATMENT OF COMMUNITY AQUIRED PNEUMONIA/ATYPICAL PNEUMONIA. HE DENIES A PAST MEDICAL HISTORY AND IS NOT CURRENTLY ON ANY HOME MEDICATIONS. TODAY, HE IS ALERT AND ORIENTED, LYING IN BED ON MORNING ROUNDS. HE IS ABLE TO ANSWER QUESTIONS AND FOLLOW COMMAND APPROPRIATELY. HE COMPLAINS OF COUGH AND OCCASIONAL SHORTNESS OF BREATH THIS MORNING. COUGH IS NOT PRODUCTIVE AT THIS TIME. ON EXAMINATION, HEART IS REGULAR IN RATE AND RHYTHM. BILATERAL LUNGS NOTED WITH RHONCHI THROUGHOUT. ABDOMEN IS FLAT, SOFT, AND NON-TENDER WITH NORMAL BOWEL SOUNDS NOTED IN ALL QUADRANTS. GOOD MOVEMENT NOTED TO ALL EXTREMITIES WITH NO EDEMA NOTED. HIS VITALS THIS MORNING ARE: 103.1-100-29-93%-118/74. HE IS CURRENTLY ON OXYGEN VIA NASAL CANNULA AT 3 LPM. LABS WERE OBTAINED. WBC 11.1, RBC 4.49, HGB 12.4, HCT 36.3, PLT COUNT 327, SODIUM 139, POTASSIUM 3.6, CHLORIDE 101, BUN 5, CREATININE 1.01, GLUCOSE 89, CALCIUM 8.2, AST 32, ALT 9, ALK PHOS 38, TOTAL PROTEIN 7.3, ALBUMIN 2.3. RESPIRATORY AIT PANEL WAS POSITIVE FOR RHINOVIRUS, HAEMOPHILUS INFLUENZAE, AND STREPTOCOCCUS PNEUMONIAE. BLOOD CULTURES ARE PENDING. HIV PENDING. MYCOPLASMA PNEUMONIA IS NEGATIVE. A CHEST XRAY WAS OBTAINED THIS MORNING AND REVEALED: Persistent bilateral pneumonia with slight interval progression. HE IS CURRENTLY RECEIVING NORMAL SALINE AT 80 ML/HR, LEVAQUIN 750MG IV DAILY, PULMICORT NEBS BID, DUONEBS QID, ROBITUSSIN DM Q4H PRN, TORADOL 30MG IV Q6H, AND THE POTASSIUM PROTOCOL. WE WILL CONTINUE WITH CURRENT PLAN OF CARE TODAY. OTHERWISE, WE WILL FOLLOW-UP WITH AM LABS AND CONTINUE TO MONITOR. TIME SPENT ON CLINICAL ASSESSMENT, REVIWING LABS AND IMAGING, DECISION MAKING, AND DOCUMENTATION GREATER THAN 45 MINUTES. - Past Medical Family Social History Past Med/Fam/Surg Hx: No changes since H&P Allergies: Allergies No Known Allergies Allergy (Verified 05/26/22 23:47) - Review of Systems ROS: No change since H&P - Vital Signs and I&O's Vital Signs: Temperature 98.9 F Pulse Rate 81 Respiratory Rate 23 Blood Pressure [Left Arm] 110/73 Blood Pressure 118/79 O2 Sat by Pulse Oximetry 100 Intake and Output: Intake & Output 05/27/22 05/28/22 05/29/22 05/30/22 11:59 11:59 11:59 11:59 Intake Total 308 / 308 2733 / 2733 4956 / 4956 2279 / 2279 Output Total 2750 / 2750 3725 / 3725 1000 / 1000 Balance 308 / 308 -17 / -17 1231 / 1231 1279 / 1279 - Physical Exam Oriented: Normal, Time, Person, Place Eyes: Normal Ear: Normal Nose: Normal Respiratory: Generalized, Rhonchi Cardiovascular: Normal Auscultation: Bowel Sounds: Normal Palpation: Normal Tenderness: Normal Skin: Normal Musculoskeletal: Normal Psychiatric: Normal Mood Description: Calm Affect: Normal Speech Pattern: Clear, Appropriate - Laboratory and Diagnostics Result Diagrams: 05/30/22 04:20 05/30/22 04:20 Labs: 05/27/22 02:50 Blood Blood Culture - Preliminary 05/27/22 02:46 Blood Blood Culture - Preliminary Laboratory WBC 8.3 X10^3/uL (3.6-10.0) 05/30/22 04:20 RBC 4.08 X10^6/uL (4.7-6.0) L 05/30/22 04:20 Hgb 11.2 g/dL (13.5-18.0) L 05/30/22 04:20 Hct 32.3 % (42.0-54.0) L 05/30/22 04:20 MCV 79.3 fL (80.0-100.0) L 05/30/22 04:20 MCH 27.5 pg (27.0-34.0) 05/30/22 04:20 MCHC 34.7 g/dL (33.0-35.0) 05/30/22 04:20 RDW 12.5 % (11.6-16.5) 05/30/22 04:20 Plt Count 287 X10^3/uL (150.0-450.0) 05/30/22 04:20 MPV 7.6 fL (7.4-11.0) 05/30/22 04:20 Neut % (Auto) 78.8 % (42.0-75.0) H 05/30/22 04:20 Lymph % (Auto) 10.0 % (21.0-51.0) L 05/30/22 04:20 [place] % (Auto) 6.5 % (0.0-13.0) 05/30/22 04:20 Eos % (Auto) 4.0 % (0.9-2.9) H 05/30/22 04:20 Baso % (Auto) 0.7 % (0.2-1.0) 05/30/22 04:20 Neut # (Auto) 6.5 x10^3/uL (2.2-4.8) H 05/30/22 04:20 Lymph # (Auto) 0.8 X10^3/uL (1.3-2.9) L 05/30/22 04:20 [place] # (Auto) 0.5 x10^3/uL (0.3-0.8) 05/30/22 04:20 Eos # (Auto) 0.3 x10^3/uL (0.0-0.2) H 05/30/22 04:20 Baso # (Auto) 0.1 X10^3/uL (0.0-0.1) 05/30/22 04:20 Absolute Nucleated RBC 0.0 /100WBC 05/30/22 04:20 D-Dimer 0.58 ug/ml (0.0-0.57) H 05/26/22 23:41 Sample Site Rr 05/28/22 05:00 ABG pH 7.490 (7.35-7.45) H 05/28/22 05:00 ABG pCO2 37.0 mmHg (35.0-45.0) 05/28/22 05:00 ABG pO2 101.0 mmHg (80.0-100.0) H 05/28/22 05:00 ABG HCO3 28.2 mmol/L (22-26) H 05/28/22 05:00 ABG O2 Saturation 98.0 % (90-100) 05/28/22 05:00 ABG Base Excess 4.7 mmol/L (-2.0-2.0) H 05/28/22 05:00 Lan Test Pos 05/28/22 05:00 A-a Gradient 81.0 mmHg 05/28/22 05:00 FiO2 32.0 05/28/22 05:00 Blood Gas Comments [place] well sw 05/28/22 05:00 Sodium 137 mmol/L (136-145) 05/30/22 04:20 Corrected Sodium TNP 05/30/22 04:20 Potassium 4.0 mmol/L (3.5-5.1) 05/30/22 04:20 Chloride 102 mmol/L (98-107) 05/30/22 04:20 Carbon Dioxide 30.0 mmol/L (21-32) 05/30/22 04:20 BUN 7 mg/dL (7-18) 05/30/22 04:20 Creatinine 0.80 mg/dL (0.70-1.30) 05/30/22 04:20 Est GFR (MDRD) Af Amer > 60 (>60) 05/30/22 04:20 Est GFR (MDRD) Non-Af > 60 (>60) 05/30/22 04:20 Glucose 84 mg/dL (65-99) 05/30/22 04:20 Calcium 8.0 mg/dL (8.5-10.1) L 05/30/22 04:20 Corrected Calcium 9.6 mg/dL (8.5-10.1) 05/30/22 04:20 Magnesium 2.0 mg/dL (2.0-2.9) 05/26/22 23:41 Total Bilirubin 0.30 mg/dL (0.2-1.0) 05/30/22 04:20 AST 26 Units/L (15-37) 05/30/22 04:20 ALT 9 Units/L (12-78) L 05/30/22 04:20 Alkaline Phosphatase 35 Units/L (46-116) L 05/30/22 04:20 Creatine Kinase 156 Units/L (39-308) 05/29/22 10:00 Troponin I High Sens 4.4 ng/L (4.0-60.0) 05/29/22 10:00 Total Protein 6.8 g/dL (6.4-8.2) 05/30/22 04:20 Albumin 2.0 g/dL (3.4-5.0) L 05/30/22 04:20 Globulin 4.8 g/dL (2.5-4.5) H 05/30/22 04:20 Albumin/Globulin Ratio 0.4 Ratio (1.1-2.1) L 05/30/22 04:20 Specimen Type Clean catch urine 05/27/22 00:15 Urine Color Yellow (YELLOW) 05/27/22 00:15 Urine Appearance Clear (CLEAR) 05/27/22 00:15 Urine pH 5.0 (5.0 - 8.0) 05/27/22 00:15 Ur Specific [place] 1.020 (1.000-1.030) 05/27/22 00:15 Urine Protein 1+ (NEGATIVE) 05/27/22 00:15 Urine Glucose (UA) Negative (NEGATIVE) 05/27/22 00:15 Urine Ketones 1+ (NEGATIVE) 05/27/22 00:15 Urine Blood 3+ (NEGATIVE) 05/27/22 00:15 Urine Nitrite Negative (NEGATIVE) 05/27/22 00:15 Urine Bilirubin Negative (NEGATIVE) 05/27/22 00:15 Urine Urobilinogen Normal (NORMAL) 05/27/22 00:15 Ur Leukocyte Esterase Negative (NEGATIVE) 05/27/22 00:15 Urine RBC 3-5 /HPF (0-3) A 05/27/22 00:15 Urine WBC 0-2 /HPF (0-5) 05/27/22 00:15 Ur Squamous Epith Cells Few /HPF (NEGATIVE) 05/27/22 00:15 Urine Bacteria Negative /HPF (NEGATIVE) 05/27/22 00:15 Ur Culture Indicated? No/not indicated 05/27/22 00:15 Urine Opiates Screen Negative (NEG=<300) 05/27/22 00:15 Urine Methadone Screen Negative (NEG=<300) 05/27/22 00:15 Ur Barbiturates Screen Negative (NEG=<200) 05/27/22 00:15 Ur Phencyclidine Scrn Negative (NEG=<25) 05/27/22 00:15 Ur Amphetamines Screen Negative (NEG=<1000) 05/27/22 00:15 U Benzodiazepines Scrn Negative (NEG=<200) 05/27/22 00:15 Urine Cocaine Screen Negative (NEG=<300) 05/27/22 00:15 U Marijuana (THC) Screen Negative (NEG=<50) 05/27/22 00:15 SARS-CoV-2 (PCR) Negative (NEGATIVE) 05/26/22 23:50 Influenza Type A (PCR) Negative (NEGATIVE) 05/26/22 23:50 Influenza Type B (PCR) Negative (NEGATIVE) 05/26/22 23:50 Mycoplasma pneumon IgG Negative (NEGATIVE) 05/27/22 18:03 RSV (PCR) Negative (NEGATIVE) 05/26/22 23:50 Resp Viral Panel (PCR) See scanned report 05/27/22 04:07 - Plan (1) Community acquired pneumonia, bilateral Status: Acute Plan: CONTINUE IV ANTIBIOTICS, NEBULIZER TREATMENTS, ROBITUSSIN. CULTURES PEN DING (2) Atypical pneumonia Status: Acute
--- NOTE | 2022-05-30 12:20 | PCM.PROG ---
Progress Note - Progress Note for Day of Date of Exam: 05/30/22 - Subjective Subjective: IS A 26 YEAR OLD PATIENT OF . HE IS CURRENTLY INPATIENT STATUS FOR TREATMENT OF COMMUNITY AQUIRED PNEUMONIA/ATYPICAL PNEUMONIA. HE DENIES A PAST MEDICAL HISTORY AND IS NOT CURRENTLY ON ANY HOME MEDICATIONS. TODAY, HE IS ALERT AND ORIENTED, LYING IN BED ON MORNING ROUNDS. HE IS ABLE TO ANSWER QUESTIONS AND FOLLOW COMMAND APPROPRIATELY. HE COMPLAINS OF COUGH AND OCCASIONAL SHORTNESS OF BREATH THIS MORNING. COUGH IS NOT PRODUCTIVE AT THIS TIME. ON EXAMINATION, HEART IS REGULAR IN RATE AND RHYTHM. BILATERAL LUNGS NOTED WITH RHONCHI THROUGHOUT. ABDOMEN IS FLAT, SOFT, AND NON-TENDER WITH NORMAL BOWEL SOUNDS NOTED IN ALL QUADRANTS. GOOD MOVEMENT NOTED TO ALL EXTREMITIES WITH NO EDEMA NOTED. HIS VITALS THIS MORNING ARE: 98.9-97-23-99%-118/79. HE IS CURRENTLY ON OXYGEN VIA NASAL CANNULA AT 3 LPM. LABS WERE OBTAINED. WBC 8.3, RBC 4.08, HGB 11.2, HCT 32.3, SODIUM 137, POTASSIUM 4.0, CHLORIDE 102, BUN 7, CREATININE 0.80, GLUCOSE 84, CALCIUM 8.0, AST 26, ALT 9, ALK PHOS 35, TOTAL PROTEIN 6.8, ALBUMIN 2.0. RESPIRATORY AIT PANEL WAS POSITIVE FOR RHINOVIRUS, HAEMOPHILUS INFLUENZAE, AND STREPTOCOCCUS PNEUMONIAE. BLOOD CULTURES ARE PENDING. HIV PENDING. MYCOPLASMA PNEUMONIA IS NEGATIVE. A CHEST XRAY WAS OBTAINED THIS MORNING AND REVEALED: Persistent diffuse bilateral pulmonary infiltrates with no improvement or progression. Heart size remains normal. HE IS CURRENTLY RECEIVING NORMAL SALINE AT 80 ML/HR, LEVAQUIN 750MG IV DAILY, PULMICORT NEBS BID, DUONEBS QID, ROBITUSSIN DM Q4H PRN, TORADOL 30MG IV Q6H, AND THE POTASSIUM PROTOCOL. WE WILL CONTINUE WITH CURRENT PLAN OF CARE TODAY. OTHERWISE, WE WILL FOLLOW-UP WITH AM LABS AND CONTINUE TO MONITOR. TIME SPENT ON CLINICAL ASSESSMENT, REVIWING LABS AND IMAGING, DECISION MAKING, AND DOCUMENTATION GREATER THAN 45 MINUTES. - Past Medical Family Social History Past Med/Fam/Surg Hx: No changes since H&P Allergies: Allergies No Known Allergies Allergy (Verified 05/26/22 23:47) - Review of Systems ROS: No change since H&P - Vital Signs and I&O's Vital Signs: Temperature 98.9 F Pulse Rate 81 Respiratory Rate 23 Blood Pressure [Left Arm] 110/73 Blood Pressure 118/79 O2 Sat by Pulse Oximetry 100 Intake and Output: Intake & Output 05/28/22 05/29/22 05/30/22 05/31/22 11:59 11:59 11:59 11:59 Intake Total 2733 / 2733 4956 / 4956 2279 / 2279 Output Total 2750 / 2750 3725 / 3725 1000 / 1000 Balance - 1231 / 1231 1279 / 1279 - Physical Exam Oriented: Normal, Time, Person, Place Eyes: Normal Ear: Normal Nose: Normal Respiratory: Generalized, Rhonchi Cardiovascular: Normal Auscultation: Bowel Sounds: Normal Tenderness: Normal Skin: Normal Musculoskeletal: Normal Psychiatric: Normal Mood Description: Calm Affect: Normal Speech Pattern: Clear, Appropriate - Laboratory and Diagnostics Result Diagrams: 05/30/22 04:20 05/30/22 04:20 Labs: 05/27/22 02:50 Blood Blood Culture - Preliminary 05/27/22 02:46 Blood Blood Culture - Preliminary Laboratory WBC 8.3 X10^3/uL (3.6-10.0) 05/30/22 04:20 RBC 4.08 X10^6/uL (4.7-6.0) L 05/30/22 04:20 Hgb 11.2 g/dL (13.5-18.0) L 05/30/22 04:20 Hct 32.3 % (42.0-54.0) L 05/30/22 04:20 MCV 79.3 fL (80.0-100.0) L 05/30/22 04:20 MCH 27.5 pg (27.0-34.0) 05/30/22 04:20 MCHC 34.7 g/dL (33.0-35.0) 05/30/22 04:20 RDW 12.5 % (11.6-16.5) 05/30/22 04:20 Plt Count 287 X10^3/uL (150.0-450.0) 05/30/22 04:20 MPV 7.6 fL (7.4-11.0) 05/30/22 04:20 Neut % (Auto) 78.8 % (42.0-75.0) H 05/30/22 04:20 Lymph % (Auto) 10.0 % (21.0-51.0) L 05/30/22 04:20 [place] % (Auto) 6.5 % (0.0-13.0) 05/30/22 04:20 Eos % (Auto) 4.0 % (0.9-2.9) H 05/30/22 04:20 Baso % (Auto) 0.7 % (0.2-1.0) 05/30/22 04:20 Neut # (Auto) 6.5 x10^3/uL (2.2-4.8) H 05/30/22 04:20 Lymph # (Auto) 0.8 X10^3/uL (1.3-2.9) L 05/30/22 04:20 [place] # (Auto) 0.5 x10^3/uL (0.3-0.8) 05/30/22 04:20 Eos # (Auto) 0.3 x10^3/uL (0.0-0.2) H 05/30/22 04:20 Baso # (Auto) 0.1 X10^3/uL (0.0-0.1) 05/30/22 04:20 Absolute Nucleated RBC 0.0 /100WBC 05/30/22 04:20 D-Dimer 0.58 ug/ml (0.0-0.57) H 05/26/22 23:41 Sample Site Rr 05/28/22 05:00 ABG pH 7.490 (7.35-7.45) H 05/28/22 05:00 ABG pCO2 37.0 mmHg (35.0-45.0) 05/28/22 05:00 ABG pO2 101.0 mmHg (80.0-100.0) H 05/28/22 05:00 ABG HCO3 28.2 mmol/L (22-26) H 05/28/22 05:00 ABG O2 Saturation 98.0 % (90-100) 05/28/22 05:00 ABG Base Excess 4.7 mmol/L (-2.0-2.0) H 05/28/22 05:00 Lan Test Pos 05/28/22 05:00 A-a Gradient 81.0 mmHg 05/28/22 05:00 FiO2 32.0 05/28/22 05:00 Blood Gas Comments [place] well sw 05/28/22 05:00 Sodium 137 mmol/L (136-145) 05/30/22 04:20 Corrected Sodium TNP 05/30/22 04:20 Potassium 4.0 mmol/L (3.5-5.1) 05/30/22 04:20 Chloride 102 mmol/L (98-107) 05/30/22 04:20 Carbon Dioxide 30.0 mmol/L (21-32) 05/30/22 04:20 BUN 7 mg/dL (7-18) 05/30/22 04:20 Creatinine 0.80 mg/dL (0.70-1.30) 05/30/22 04:20 Est GFR (MDRD) Af Amer > 60 (>60) 05/30/22 04:20 Est GFR (MDRD) Non-Af > 60 (>60) 05/30/22 04:20 Glucose 84 mg/dL (65-99) 05/30/22 04:20 Calcium 8.0 mg/dL (8.5-10.1) L 05/30/22 04:20 Corrected Calcium 9.6 mg/dL (8.5-10.1) 05/30/22 04:20 Magnesium 2.0 mg/dL (2.0-2.9) 05/26/22 23:41 Total Bilirubin 0.30 mg/dL (0.2-1.0) 05/30/22 04:20 AST 26 Units/L (15-37) 05/30/22 04:20 ALT 9 Units/L (12-78) L 05/30/22 04:20 Alkaline Phosphatase 35 Units/L (46-116) L 05/30/22 04:20 Creatine Kinase 156 Units/L (39-308) 05/29/22 10:00 Troponin I High Sens 4.4 ng/L (4.0-60.0) 05/29/22 10:00 Total Protein 6.8 g/dL (6.4-8.2) 05/30/22 04:20 Albumin 2.0 g/dL (3.4-5.0) L 05/30/22 04:20 Globulin 4.8 g/dL (2.5-4.5) H 05/30/22 04:20 Albumin/Globulin Ratio 0.4 Ratio (1.1-2.1) L 05/30/22 04:20 Specimen Type Clean catch urine 05/27/22 00:15 Urine Color Yellow (YELLOW) 05/27/22 00:15 Urine Appearance Clear (CLEAR) 05/27/22 00:15 Urine pH 5.0 (5.0 - 8.0) 05/27/22 00:15 Ur Specific [place] 1.020 (1.000-1.030) 05/27/22 00:15 Urine Protein 1+ (NEGATIVE) 05/27/22 00:15 Urine Glucose (UA) Negative (NEGATIVE) 05/27/22 00:15 Urine Ketones 1+ (NEGATIVE) 05/27/22 00:15 Urine Blood 3+ (NEGATIVE) 05/27/22 00:15 Urine Nitrite Negative (NEGATIVE) 05/27/22 00:15 Urine Bilirubin Negative (NEGATIVE) 05/27/22 00:15 Urine Urobilinogen Normal (NORMAL) 05/27/22 00:15 Ur Leukocyte Esterase Negative (NEGATIVE) 05/27/22 00:15 Urine RBC 3-5 /HPF (0-3) A 05/27/22 00:15 Urine WBC 0-2 /HPF (0-5) 05/27/22 00:15 Ur Squamous Epith Cells Few /HPF (NEGATIVE) 05/27/22 00:15 Urine Bacteria Negative /HPF (NEGATIVE) 05/27/22 00:15 Ur Culture Indicated? No/not indicated 05/27/22 00:15 Urine Opiates Screen Negative (NEG=<300) 05/27/22 00:15 Urine Methadone Screen Negative (NEG=<300) 05/27/22 00:15 Ur Barbiturates Screen Negative (NEG=<200) 05/27/22 00:15 Ur Phencyclidine Scrn Negative (NEG=<25) 05/27/22 00:15 Ur Amphetamines Screen Negative (NEG=<1000) 05/27/22 00:15 U Benzodiazepines Scrn Negative (NEG=<200) 05/27/22 00:15 Urine Cocaine Screen Negative (NEG=<300) 05/27/22 00:15 U Marijuana (THC) Screen Negative (NEG=<50) 05/27/22 00:15 SARS-CoV-2 (PCR) Negative (NEGATIVE) 05/26/22 23:50 Influenza Type A (PCR) Negative (NEGATIVE) 05/26/22 23:50 Influenza Type B (PCR) Negative (NEGATIVE) 05/26/22 23:50 Mycoplasma pneumon IgG Negative (NEGATIVE) 05/27/22 18:03 RSV (PCR) Negative (NEGATIVE) 05/26/22 23:50 Resp Viral Panel (PCR) See scanned report 05/27/22 04:07 - Plan (1) Community acquired pneumonia, bilateral Status: Acute Plan: CONTINUE IV ANTIBIOTICS, NEBULIZER TREATMENTS, ROBITUSSIN. CULTURES PENDING (2) Atypical pneumonia Status: Acute Plan: Follow-up with respiratory viral cultures when available. We will try to do a sputum culture as well.
[2022-05-30] MEDS: TORADOL 30 MG VIAL IVP PRN (16:17)
[2022-05-31 05:13] LABS: BASOPHILS % (AUTO) 0.8 % (0.2-1.0); EOSINOPHILS # (AUTO) 0.3 x10^3/uL (0.0-0.2); EOSINOPHILS % (AUTO) 4.9 % (0.9-2.9); HEMATOCRIT 32.9 % (42.0-54.0); HEMOGLOBIN 11.4 g/dL (13.5-18.0); LYMPHOCYTES % (AUTO) 19.3 % (21.0-51.0); MEAN CORPUSCULAR HEMOGLOBIN 27.6 pg (27.0-34.0); MEAN CORPUSCULAR HGB CONC 34.5 g/dL (33.0-35.0); MEAN CORPUSCULAR VOLUME 80.1 fL (80.0-100.0); MEAN PLATELET VOLUME 7.6 fL (7.4-11.0); MONOCYTES # (AUTO) 0.5 x10^3/uL (0.3-0.8); MONOCYTES % (AUTO) 8.9 % (0.0-13.0); NEUTROPHILS # (AUTO) 3.4 x10^3/uL (2.2-4.8); NEUTROPHILS % (AUTO) 66.1 % (42.0-75.0); RED BLOOD COUNT 4.11 X10^6/uL (4.7-6.0); RED CELL DISTRIBUTION WIDTH 12.2 % (11.6-16.5); WHITE BLOOD COUNT 5.2 X10^3/uL (3.6-10.0)
[2022-05-31 05:25] LABS: ALANINE AMINOTRANSFERASE 11 Units/L (12-78); ALBUMIN 2.1 g/dL (3.4-5.0); ALKALINE PHOSPHATASE 34 Units/L (46-116); ASPARTATE AMINO TRANSFERASE 31 Units/L (15-37); BLOOD UREA NITROGEN 6 mg/dL (7-18); CALCIUM 8.2 mg/dL (8.5-10.1); CHLORIDE 102 mmol/L (98-107); COR CA(FOR HYPOALB) 9.7 mg/dL (8.5-10.1); CREATININE 0.77 mg/dL (0.70-1.30); SODIUM 139 mmol/L (136-145); TOTAL PROTEIN 6.8 g/dL (6.4-8.2); eGFR NON BLACK RACES > 60 (>60)
--- NOTE | 2022-05-31 05:44 | RAD ---
HISTORYPNEUMONIA Relevant Clinical InformationSTUDYCHEST, 1 [id number] trachea is midline. The cardiac silhouette is unremarkable. Diffuse bilateral pulmonary infiltrates unchanged. No pneumothorax.. The bony thorax is unremarkable.IMPRESSIONDiffuse bilateral pulmonary infiltrates no significant change from 05/30/2022.Electronically signed by: Yogesh Dubois (May 31, 2022 05:43:21)
[2022-05-31] MEDS: DUONEB 0.5 MG/3 MG (3 mL) NEB SCH (08:10)
[2022-05-31] MEDS: PULMICORT NEB TX 0.5 MG NEB SCH (08:12)
[2022-05-31] MEDS: LEVAQUIN PREMIX IV 750 MG 750 MG/150 ML BAG IV SCH (08:36)
[2022-05-31 12:03] VITALS: BP 120/80
[2022-06-03 13:59] LABS: HIV1 WESTERN BLOT Positive (Negative)
== END 2022-05-31 12:00 | disposition home or self-care (01) | DRG 195 ==
LOC: ER 23:36 → ICU 05-27 03:17
PROVIDERS: ADMIT Family Medicine; ATTEND Family Medicine
DX: J18.8 Other pneumonia, unspecified organism; R42 Dizziness and giddiness; Z20.822 Contact with and (suspected) exposure to COVID-19; B95.3 Streptococcus pneumoniae as the cause of diseases classified elsewhere; R06.02 Shortness of breath; B96.3 Hemophilus influenzae [H. influenzae] as the cause of diseases classified elsewhere; R79.1 Abnormal coagulation profile; B97.89 Other viral agents as the cause of diseases classified elsewhere